=== PATIENT | female | born 1995 ===

== ENCOUNTER 2020-01-13 21:57 | Outpatient (CLI) | payer BC ==
[~2020-01-13] VITALS: Ht 167.6 cm; Wt 66.8 kg
[2020-01-13] MEDS ORDERED: MAALOX/HYOSCYAMINE/LIDOCAINE 45 ML BTL PO ONE (22:30)
[2020-01-13 22:36] LABS: MICROSCOPIC NOT IND
[2020-01-13] MEDS ORDERED: PREN-59 PO (23:11)
== END 2020-01-13 23:43 | disposition home or self-care (01) ==
LOC: LDOP 21:57
PROVIDERS: ATTEND Obstetrics & Gynecology
DX: O26.892 Other specified pregnancy related conditions, second trimester (principal); R10.9 Unspecified abdominal pain; Z3A.22 22 weeks gestation of pregnancy
CPT/HCPCS: 81003; 87086; 99201; G0463

== ENCOUNTER 2020-05-08 05:47 | Inpatient (IN) | payer BC ==
[~2020-05-08] VITALS: Ht 167.6 cm; Wt 78.0 kg
[~2020-05-08 05:47] MED LIST: PREN-59 PO
[2020-05-08] MEDS: D5%-LACTATED RINGERS 1,000 ML IV SCH ×2 (05:49→13:49)
[2020-05-08] MEDS ORDERED: OXYTOCIN 30U/ 0.9% NaCL 500ML 500 ML IV PRN ×2 (05:49→12:14)
[2020-05-08] MEDS ORDERED: OXYTOCIN 30U/ 0.9% NaCL 500ML 500 ML IV ONE (05:49)
[2020-05-08 05:57] VITALS: BP 126/77
[2020-05-08] MEDS ORDERED: TERBUTALINE 1 MG/ML, 1ML IVPush PRN (06:00)
[2020-05-08] MEDS ORDERED: FENTANYL PF 100 MCG/2ML IV PRN (06:00)
[2020-05-08] MEDS ORDERED: CALCIUM CARBONATE 500 MG TAB.CHEW PO PRN (06:00)
[2020-05-08] MEDS ORDERED: FENTANYL PF 100 MCG/2ML IVPush PRN (06:00)
[2020-05-08] MEDS ORDERED: TERBUTALINE 1 MG/ML, 1ML SQ PRN (06:00)
[2020-05-08] MEDS ORDERED: ONDANSETRON 2MG/ML, 2ML IVPush PRN (06:00)
[2020-05-08] MEDS ORDERED: MISOPROSTOL 25 MCG TABLET VG PRN (06:00)
[2020-05-08 06:18] LABS: BASOPHILS # (AUTO) 0.02 x10^3/uL (0-0.1); BASOPHILS % (AUTO) 0 % (0-1); EOSINOPHILS # (AUTO) 0.07 x10^3/uL (0-0.4); EOSINOPHILS % (AUTO) 1 % (1-7); LYMPHOCYTES # (AUTO) 2.36 x10^3/uL (1-3.4); LYMPHOCYTES % (AUTO) 32 % (22-44); MD NO; MEAN CORPUSCULAR HGB CONC 32.7 g/dL (32.4-35.8); MEAN CORPUSCULAR VOLUME 82.7 fL (80-100); MEAN PLATELET VOLUME 10.4 fL (7.4-10.4); MONOCYTES # (AUTO) 0.64 x10^3/uL (0.2-0.8); MONOCYTES % (AUTO) 9 % (2-9); NEUTROPHILS # (AUTO) 4.31 x10^3/uL (1.8-6.8); NEUTROPHILS % (AUTO) 58 % (42-75); PLATELET COUNT 119 x10^3/uL (130-400); RED BLOOD COUNT 4.56 x10^6/uL (3.82-5.3); RED CELL DISTRIBUTION WIDTH 14.7 % (9.6-15.2)
[2020-05-08] MEDS ORDERED: OXYTOCIN 30U/ 0.9% NaCL 500ML 500 ML ONE ×2 (06:19→17:50)
[2020-05-08] MEDS: LACTATED RINGERS 1,000 ML IV SCH ×2 (06:28→13:49)
[2020-05-08] MEDS ORDERED: NEWBORN KIT ONE (06:38)
[2020-05-08] MEDS ORDERED: MISOPROSTOL 200 MCG TABLET ONE (06:38)
[2020-05-08] MEDS ORDERED: LIDOCAINE 1%, 20ML ONE (06:38)
[2020-05-08] MEDS: OXYTOCIN 30U/ 0.9% NaCL 500ML 500 ML IV SCH (17:00)
[2020-05-08] MEDS ORDERED: IBUPROFEN 600 MG TABLET PO PRN (17:00)
[2020-05-08] MEDS ORDERED: ONDANSETRON 2MG/ML, 2ML IV PRN (17:00)
[2020-05-08] MEDS ORDERED: OXYcodone/APAP 5/325MG TABLET PO PRN ×2 (17:00)
[2020-05-08] MEDS ORDERED: SIMETHICONE 80 MG CHEW TAB PO PRN (17:00)
[2020-05-08] MEDS ORDERED: MISOPROSTOL 200 MCG TABLET PR PRN (17:00)
[2020-05-08 17:47] VITALS: BP 123/61
[2020-05-08 18:15] VITALS: BP 123/74
[2020-05-08 19:50] VITALS: BP 128/81
[2020-05-08] MEDS: DOCUSATE 100 MG CAPSULE PO PRN (22:27)
[2020-05-09 00:20] VITALS: BP 127/61
[2020-05-09 01:19] LABS: BASOPHILS # (AUTO) 0.01 x10^3/uL (0-0.1); BASOPHILS % (AUTO) 0 % (0-1); EOSINOPHILS % (AUTO) 0 % (1-7); LYMPHOCYTES # (AUTO) 1.64 x10^3/uL (1-3.4); LYMPHOCYTES % (AUTO) 13 % (22-44); MD NO; MEAN CORPUSCULAR HEMOGLOBIN 26.9 pg (27.0-34.8); MEAN CORPUSCULAR HGB CONC 32.3 g/dL (32.4-35.8); MEAN CORPUSCULAR VOLUME 83.2 fL (80-100); MEAN PLATELET VOLUME 10.5 fL (7.4-10.4); MONOCYTES # (AUTO) 0.78 x10^3/uL (0.2-0.8); MONOCYTES % (AUTO) 6 % (2-9); NEUTROPHILS # (AUTO) 9.92 x10^3/uL (1.8-6.8); NEUTROPHILS % (AUTO) 80 % (42-75); PLATELET COUNT 114 x10^3/uL (130-400); RED BLOOD COUNT 4.11 x10^6/uL (3.82-5.3); RED CELL DISTRIBUTION WIDTH 14.7 % (9.6-15.2)
[2020-05-09] MEDS: OXYTOCIN 30U/ 0.9% NaCL 500ML 500 ML IV SCH (02:38)
[2020-05-09 04:55] VITALS: BP 114/65
[2020-05-09 08:20] VITALS: BP 113/70
[2020-05-09] MEDS ORDERED: PRENATAL VIT/IRON/FA 1 EACH TABLET PO SCH (09:00)
[2020-05-09] MEDS ORDERED: IBUP-1222 PO (14:16)
[2020-05-09] MEDS: DOCUSATE 100 MG CAPSULE PO PRN (14:26)
== END 2020-05-09 17:20 | disposition home or self-care (01) | DRG 807 ==
LOC: LDIP 05:47 → 2NW 18:02
PROVIDERS: ADMIT Obstetrics & Gynecology; ATTEND Obstetrics & Gynecology
PROC: 10E0XZZ Delivery of Products of Conception, External Approach (ICD-10-PCS; principal; 2020-05-08)
PROC: 0KQM0ZZ Repair Perineum Muscle, Open Approach (ICD-10-PCS; 2020-05-08)
PROC: 10907ZC Drainage of Amniotic Fluid, Therapeutic from Products of Conception, Via Natural or Artificial Opening (ICD-10-PCS; 2020-05-08)
DX: O70.1 Second degree perineal laceration during delivery (principal); Z37.0 Single live birth; Z3A.39 39 weeks gestation of pregnancy; Z83.3 Family history of diabetes mellitus
CPT/HCPCS: 36415; 85025; 86592; 86850; 86900; G0378; J2590; J7120